=== PATIENT | female | born 1995 | race Caucasian/White ===

== ENCOUNTER → 2017-08-10 | Emergency (ER) | payer BC ==
[2017-08-10 12:42] VITALS: BP 114/64; PULSE 87; TEMP 97.6
== END ==
LOC: COL.ER 12:38
DX: S01.81XD Laceration without foreign body of other part of head, subsequent encounter (principal); X58.XXXD Exposure to other specified factors, subsequent encounter

== ENCOUNTER 2018-06-06 13:49 | Emergency (ER) | payer BC ==
[~2018-06-06] VITALS: Ht 172.7 cm; Wt 90.9 kg
[2018-06-06 14:04] VITALS: TEMP 97.5
[2018-06-06] MEDS ORDERED: SYNTHROID0.05 MG/TA PO (14:42)
[2018-06-06] MEDS ORDERED: AMITRIPTYLINE H50 M1 PO (14:42)
[2018-06-06 14:44] VITALS: BP 107/61
[2018-06-06 16:10] LABS: BASO # 0.1 (0.0-0.2); BASO % 0.5 % (0.0-2.0); EOS % 0.2 % (0-4.0); GRAN # 10.7 (1.4-6.5); GRAN % 83.8 % (42.2-75.2); HEMATOCRIT 43.2 % (35.0-45.0); HEMOGLOBIN 14.1 g/dl (12.0-15.0); LYMPH # 1.2 (1.2-3.4); LYMPH % 9.2 % (20.0-51.0); MEAN CELL VOLUME 88 fl (80.0-95.0); MEAN CORPUSCULAR HEMOGLOBIN 29 pg (26.0-32.0); MEAN CORPUSCULAR HGB CONC 33 g/dl (33.0-37.0); MEAN PLATELET VOLUME 10.7 fl (7.4-10.4); MONO # 0.7 (0.1-0.6); MONO % 5.8 % (1.7-9.3); PLATELET COUNT 310 K/mm3 (130-400); RED BLOOD COUNT 4.93 M/mm3 (4.10-5.30); REDCELL DISTRIBUTION WIDTH-CV 13.1 % (11.5-14.5)
[2018-06-06 16:17] LABS: ALBUMIN 4.3 gm/dL (3.5-5.0); BILIRUBIN,TOTAL 0.5 mg/dL (0.0-1.0); CALCIUM 9.5 mg/dL (8.4-10.2); CREATININE, serum 0.64 mg/dL (0.52-1.25); POTASSIUM 3.8 mmol/L (3.4-5.0); TOTAL PROTEIN 7.7 gm/dL (6.4-8.2)
[2018-06-06 17:05] VITALS: PULSE 74
== END 2018-06-06 17:05 | disposition home or self-care (01) ==
LOC: COL.ER 13:49
PROVIDERS: Emergency Medicine
DX: S01.01XA Laceration without foreign body of scalp, initial encounter (principal); R55 Syncope and collapse; X58.XXXA Exposure to other specified factors, initial encounter
CPT/HCPCS: J7030

== ENCOUNTER → 2018-06-18 | Emergency (ER) | payer BC ==
[~2018-06-18] MED LIST: AMITRIPTYLINE H50 M1 PO; SYNTHROID0.05 MG/TA PO
[2018-06-18 11:20] VITALS: BP 117/58; PULSE 81; TEMP 98
== END ==
LOC: COL.ER 11:13
DX: S01.91XD Laceration without foreign body of unspecified part of head, subsequent encounter (principal); X58.XXXD Exposure to other specified factors, subsequent encounter